=== PATIENT | male | born 1960 | race Caucasian/White ===

== ENCOUNTER 2019-03-25 11:11 | Inpatient (IN) | payer MEDICARE ==
[~2019-03-25] VITALS: Ht 175.3 cm; Wt 86.6 kg
[~2019-03-25 11:11] MED LIST: ASPIRIN BUFFER325 MG PO; DIGOXIN125 MCG PO; INDOCIN25 MG/5 ML PO; METOPROLOL TART25 MG PO; NORCO 10-325 T1 EACH PO
--- OUTSIDE RECORDS SUMMARY | 2019-03-25 11:15 | XMS REPORT ---
Author [facility] Address Unknown Phone Unavailable Care Team Providers Care Analysis Mgr Name Role Phone Unavailable Unavailable Problems This patient has no known problems. Allergies, Adverse Reactions, Alerts This patient has no known allergies or adverse reactions. Medications This patient has no known medications. Encounters Start Date/Time End Date/Time Encounter Type Admission Type Attending [facility] Care Department Encounter ID 2019-03-15 08:25:06 2019-03-15 08:25:06 Outpatient [facility] [id number] 2019-03-15 07:18:30 2019-03-15 07:18:30 Outpatient [facility] [id number] 2019-03-15 00:00:00 2019-03-15 00:00:00 Outpatient [facility] [id number] 2018-08-16 10:33:34 2018-08-16 10:33:34 Outpatient [facility] [id number] 2018-08-10 00:00:00 2018-08-10 00:00:00 Outpatient [facility] [id number] 2018-08-09 07:30:17 2018-08-09 07:30:17 Outpatient [facility] [id number] 2018-07-26 12:17:42 2018-07-26 12:17:42 Outpatient [facility] [id number] 2018-07-20 10:40:40 2018-07-20 10:40:40 Outpatient [facility] [id number] 2018-05-31 00:00:00 2018-05-31 00:00:00 Outpatient [facility] [id number] 2018-05-05 12:03:38 2018-05-05 12:03:38 Outpatient [facility] [id number] 2018-05-04 13:37:14 2018-05-04 13:37:14 Outpatient [facility] [id number] 2018-04-19 09:02:52 2018-04-19 09:02:52 Outpatient [facility] [id number] 2018-04-19 08:56:32 2018-04-19 08:56:32 Outpatient [facility] [id number] 2018-04-19 08:00:29 2018-04-19 08:00:29 Outpatient [facility] [id number]
[2019-03-25 12:00] VITALS: BP 121/82
[2019-03-25 12:24] VITALS: BP 128/106
[2019-03-25] MEDS ORDERED: ENOXAPARIN INJ 80 MG/0.8 ML SYR SC SCH (12:30)
[2019-03-25] MEDS ORDERED: METOPROLOL TARTRATE INJ 1 MG/ML VIAL IV PRN (12:45)
[2019-03-25] MEDS: DRONEDARONE 400 MG TAB PO SCH ×2 (12:46→17:00)
[2019-03-25] MEDS: APIXABAN 5 MG TABLET PO SCH ×2 (12:46→17:00)
[2019-03-25] MEDS: METOPROLOL TARTRATE 25 MG TAB PO SCH ×3 (12:46→23:41)
[2019-03-25] MEDS ORDERED: ASPIR-LOW81 MG PO (13:01)
[2019-03-25] MEDS ORDERED: BACLOFEN10 MG PO (13:03)
[2019-03-25] MEDS ORDERED: LORATADINE10 MG PO (13:05)
[2019-03-25] MEDS ORDERED: LEVOXYL PO (13:06)
[2019-03-25] MEDS ORDERED: PANTOPRAZOLE SO40 MG PO (13:07)
[2019-03-25] MEDS ORDERED: LYRICA50 MG PO (13:08)
[2019-03-25] MEDS ORDERED: COREG3.125 MG PO (13:09)
[2019-03-25] MEDS ORDERED: BENICAR20 MG PO (13:11)
[2019-03-25] MEDS ORDERED: PROAIR HFA IH (13:13)
[2019-03-25 14:07] LABS: BASOPHILS % 0.2 % (0.0-1.0); EOSINOPHILS % 0.2 % (0.0-6.0); HEMATOCRIT 45.3 % (38.2-49.6); HEMOGLOBIN 14.8 g/dL (14.0-18.0); LYMPHOCYTES # (AUTO) 0.9 (1.0-3.2); LYMPHOCYTES % 7.5 % (18.0-39.1); MEAN CORPUSCULAR HEMOGLOBIN 30.4 pg (28-32); MEAN CORPUSCULAR HGB CONC 32.7 g/dL (31-35); MONOCYTES # (AUTO) 0.3 (0.2-0.8); MONOCYTES % 2.6 % (4.4-11.3); NEUTROPHILS # (AUTO) 10.8 (2.1-6.9); PLATELET COUNT 225 x10e3/uL (140-360); RED BLOOD COUNT 4.87 x10e6/uL (4.3-5.7); RED CELL DISTRIBUTION WIDTH 12.8 % (11.7-14.4)
[2019-03-25 14:20] LABS: INR 0.86; PROTHROMBIN TIME 12.2 seconds (11.9-14.5)
[2019-03-25 14:21] LABS: PARTIAL THROMBOPLASTIN TIME 28.5 seconds (23.8-35.5)
[2019-03-25 14:29] LABS: ALANINE AMINOTRANSFERASE 11 IU/L (0-55); ALBUMIN 3.3 g/dL (3.5-5.0); ALKALINE PHOSPHATASE 70 IU/L (40-150); ANION GAP 14.9 mmol/L (8-16); BLOOD UREA NITROGEN 20 mg/dL (7-26); BUN/CREATININE RATIO 17 (6-25); CALCIUM 9.2 mg/dL (8.4-10.2); CARBON DIOXIDE 21 mmol/L (22-29); CHLORIDE 106 mmol/L (98-107); CREATININE, SERUM 1.17 mg/dL (0.72-1.25); EST GLOMERULAR FILTRATION RATE > 60 ML/MIN (60-); GLUCOSE 147 mg/dL (74-118); MAGNESIUM 1.9 MG/DL (1.3-2.1); POTASSIUM 3.9 mmol/L (3.5-5.1); SODIUM 138 mmol/L (136-145)
[2019-03-25 14:48] LABS: THYROID STIMULATING HORMONE 0.837 uIU/mL (0.350-4.940)
[2019-03-25 15:00] VITALS: BP 132/80
[2019-03-25 15:47] LABS: ABG HCO3 19 mmol/L (23-28); ABG PCO2 32 mmHg (41-51); ABG PH 7.39 (7.31-7.41); ABG PO2 99 mmHg (80-105)
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
--- NOTE | 2019-03-25 18:13 | Diagnostic Imaging Report ---
EXAMINATION: CHEST SINGLE (PORTABLE) INDICATION: ^[id number] ^[id number] ^[id number] COMPARISON: None FINDINGS: TUBES and LINES: None. LUNGS: Lungs are well inflated. Lungs are clear. There is no evidence of pneumonia or pulmonary edema. PLEURA: No pleural effusion or pneumothorax. HEART AND MEDIASTINUM: The cardiomediastinal silhouette is unremarkable. BONES AND SOFT TISSUES: No acute osseous lesion. Soft tissues are unremarkable. UPPER ABDOMEN: No free air under the diaphragm. IMPRESSION: No acute thoracic abnormality. Signed by: Dr. Zuri Gomez M.D. on 03/25/2019 6:11 PM
[2019-03-25] MEDS ORDERED: SODIUM CHLORIDE 0.9% 50ML 50 ML ONE (18:18)
[2019-03-25] MEDS ORDERED: IOPAMIDOL 370 MG/ML 200 ML INFUS..BTL INJ ONE (18:19)
--- NOTE | 2019-03-25 18:32 | Diagnostic Imaging Report ---
EXAM: CT Chest WITH contrast 03/25/2019 11:59 AM INDICATION: Pain. Pulmonary Embolism.. Atrial fibrillation. COMPARISON: 11/06/2013. TECHNIQUE: Chest was scanned utilizing a multidetector helical scanner from the lung apex through the level of the adrenal glands without administration of IV contrast. Coronal and sagittal reformations were obtained. Pulmonary embolism protocol was performed. IV CONTRAST: 100 cc Isovue-300 RADIATION DOSE: Total DLP: 521.29 mGy*cm Estimated effective dose: (DLP x 0.014 x size factor) mSv COMPLICATIONS: None FINDINGS: LINES/ TUBES: None. LUNGS AND AIRWAYS: No filling defects within the pulmonary arterial system to suggest pulmonary embolism as per clinical query. Patchy consolidation in the left lung base may represent pneumonia in the proper clinical setting. Airways are normal. PLEURA: The pleural spaces are clear. HEART AND MEDIASTINUM: The thyroid gland is normal. No mediastinal, hilar or axillary lymphadenopathy. The heart is normal in size.. There is no pericardial effusion. UPPER ABDOMEN: Limited non-contrast views of the upper abdomen show no abnormality within the visualized liver, spleen, pancreas, or kidneys. The adrenal glands are normal. BONES: Lower thoracic the ICA. SOFT TISSUES: Unremarkable. IMPRESSION: 1. No evidence of pulmonary embolism. 2. Patchy consolidation in the left lung base concerning for pneumonia in the proper clinical setting Signed by: Dr. Zuri Gomez M.D. on 03/25/2019 6:29 PM
[2019-03-25 19:00] VITALS: BP 135/84
[2019-03-25 23:00] VITALS: BP 123/103
[2019-03-26] VITALS (9 sets, daily range): BP systolic 112–144; BP diastolic 80–106
[2019-03-26] MEDS: METOPROLOL TARTRATE 25 MG TAB PO SCH ×3 (06:06→23:45)
[2019-03-26] MEDS ORDERED: LORAZEPAM INJ 2 MG/ML VIAL IV PRN (08:00)
[2019-03-26] MEDS: APIXABAN 5 MG TABLET PO SCH ×2 (08:25→16:33)
[2019-03-26] MEDS: DRONEDARONE 400 MG TAB PO SCH ×2 (08:25→16:33)
[2019-03-26] MEDS: LEVOFLOXACIN 500MG/D5W 100ML 100 ML IV SCH (11:22)
[2019-03-26] MEDS ORDERED: METOPROLOL TARTRATE 25 MG TAB PO SCH (12:30)
[2019-03-26] MEDS: FAMOTIDINE 20 MG TAB PO SCH (16:33)
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
[2019-03-27] VITALS (7 sets, daily range): BP systolic 101–154; BP diastolic 66–104
[2019-03-27 05:06] LABS: BASOPHILS % 0.4 % (0.0-1.0); EOSINOPHILS # (AUTO) 0.2 (0.0-0.4); EOSINOPHILS % 1.8 % (0.0-6.0); HEMATOCRIT 44.8 % (38.2-49.6); HEMOGLOBIN 14.3 g/dL (14.0-18.0); LYMPHOCYTES # (AUTO) 2.6 (1.0-3.2); LYMPHOCYTES % 24.7 % (18.0-39.1); MEAN CORPUSCULAR HEMOGLOBIN 30.6 pg (28-32); MEAN CORPUSCULAR HGB CONC 31.9 g/dL (31-35); MEAN CORPUSCULAR VOLUME 95.9 fL (81-99); MONOCYTES # (AUTO) 1.1 (0.2-0.8); MONOCYTES % 10.5 % (4.4-11.3); NEUTROPHILS # (AUTO) 6.6 (2.1-6.9); PLATELET COUNT 216 x10e3/uL (140-360); RED BLOOD COUNT 4.67 x10e6/uL (4.3-5.7); RED CELL DISTRIBUTION WIDTH 13.6 % (11.7-14.4)
[2019-03-27 05:21] LABS: CREATININE, SERUM 1.38 mg/dL (0.72-1.25)
[2019-03-27] MEDS: FAMOTIDINE 20 MG TAB PO SCH ×2 (07:15→16:51)
[2019-03-27] MEDS: DRONEDARONE 400 MG TAB PO SCH (08:05)
[2019-03-27] MEDS: METOPROLOL TARTRATE 25 MG TAB PO SCH (08:05)
[2019-03-27] MEDS: APIXABAN 5 MG TABLET PO SCH ×2 (08:06→16:51)
[2019-03-27] MEDS ORDERED: TRAMADOL HCL 50 MG TAB PO PRN (10:15)
[2019-03-27] MEDS: BACLOFEN 10 MG TAB PO SCH ×2 (10:37→20:53)
[2019-03-27] MEDS: LEVOFLOXACIN 500MG/D5W 100ML 100 ML IV SCH (10:38)
[2019-03-27] MEDS ORDERED: METOPROLOL TARTRATE 50 MG TAB PO SCH (17:00)
--- NOTE | 2019-03-27 18:36 | NUR ---
Pt with sudden onset nausea and headache. Vitals HR 114, BP 110/87. Spoke with Dr Ness and orders received, also he advised to notify cardiology.
[2019-03-27] MEDS ORDERED: ONDANSETRON HCL INJ 2MG/ML 2ML 2 MG/ML VIAL IV PRN (18:45)
--- NOTE | 2019-03-27 18:53 | NUR ---
Spoke with Dr Mosqueda regarding pt reporting sudden nausea and headache. No new orders.
[2019-03-27] MEDS: PREGABALIN 50 MG CAP PO SCH (20:53)
[2019-03-28] VITALS (11 sets, daily range): BP systolic 92–125; BP diastolic 63–100
[2019-03-28] MEDS: LEVOTHYROXINE SODIUM 25 MCG TABLET PO SCH (05:24)
[2019-03-28 05:36] LABS: ALBUMIN 3.1 g/dL (3.5-5.0); ALBUMIN/GLOBULIN RATIO 0.9 (0.8-2.0); ANION GAP 14.8 mmol/L (8-16); CALCIUM 9.2 mg/dL (8.4-10.2); CREATININE, SERUM 1.71 mg/dL (0.72-1.25); POTASSIUM 3.8 mmol/L (3.5-5.1)
[2019-03-28] MEDS: PANTOPRAZOLE SOD 40 MG TABEC PO SCH (07:27)
[2019-03-28] MEDS: FAMOTIDINE 20 MG TAB PO SCH ×2 (07:28→16:36)
[2019-03-28] MEDS: LEVALBUTEROL HCL SOLN NEBU 0.63 MG/3 ML NEB INH PRN (07:38)
[2019-03-28] MEDS ORDERED: METOPROLOL TARTRATE 50 MG TAB PO SCH (09:00)
[2019-03-28] MEDS ORDERED: ASPIRIN 81 MG CHEW TAB PO SCH (09:00)
[2019-03-28] MEDS: OLMESARTAN 20 MG TAB PO SCH (09:19)
[2019-03-28] MEDS: LORATADINE 10 MG TAB PO SCH (09:21)
[2019-03-28] MEDS: APIXABAN 5 MG TABLET PO SCH ×2 (09:21→18:14)
[2019-03-28] MEDS: METOPROLOL TARTRATE 25 MG TAB PO SCH ×2 (09:21→18:14)
[2019-03-28] MEDS: BACLOFEN 10 MG TAB PO SCH ×2 (10:15→21:15)
[2019-03-28 10:49] LABS: BASOPHILS # (AUTO) 0.1 (0.0-0.1); BASOPHILS % 0.4 % (0.0-1.0); EOSINOPHILS # (AUTO) 0.2 (0.0-0.4); EOSINOPHILS % 2.1 % (0.0-6.0); HEMATOCRIT 48.6 % (38.2-49.6); HEMOGLOBIN 15.6 g/dL (14.0-18.0); LYMPHOCYTES # (AUTO) 2.1 (1.0-3.2); LYMPHOCYTES % 17.9 % (18.0-39.1); MEAN CORPUSCULAR HGB CONC 32.1 g/dL (31-35); MEAN CORPUSCULAR VOLUME 96.6 fL (81-99); MONOCYTES # (AUTO) 1.1 (0.2-0.8); MONOCYTES % 9.8 % (4.4-11.3); NEUTROPHILS % 69.2 % (38.7-80.0); PLATELET COUNT 253 x10e3/uL (140-360); RED BLOOD COUNT 5.03 x10e6/uL (4.3-5.7); RED CELL DISTRIBUTION WIDTH 13.8 % (11.7-14.4)
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
[2019-03-28] MEDS: CEFTRIAXONE SOD 1 GM/NS 50 ML 50 ML IV SCH (11:44)
[2019-03-28] MEDS: AZITHROMYCIN 250 MG TAB PO SCH (11:45)
[2019-03-28] MEDS: DRONEDARONE 400 MG TAB PO SCH (18:14)
--- NOTE | 2019-03-28 18:24 | NUR ---
Bp 98/68, HR 71. Spoke with Dr Mosqueda. Ordered to give the multaq and metoprolol at this time.
--- NOTE | 2019-03-28 19:00 | NUR ---
Bedside report received from Lisa Menjivar RN. Pt received sitting up in bed, AAOx4, room air, no distress noted, pt reports no pain or discomfort. Care plan reviewed, no family present. Call light in reach of the pt, bed in lowest and locked position.
[2019-03-28] MEDS: PREGABALIN 50 MG CAP PO SCH (21:15)
[2019-03-29] VITALS: BP 111/76
[2019-03-29 04:59] LABS: BASOPHILS # (AUTO) 0.1 (0.0-0.1); BASOPHILS % 0.5 % (0.0-1.0); EOSINOPHILS # (AUTO) 0.3 (0.0-0.4); HEMATOCRIT 46.2 % (38.2-49.6); HEMOGLOBIN 14.7 g/dL (14.0-18.0); LYMPHOCYTES # (AUTO) 2.3 (1.0-3.2); LYMPHOCYTES % 21.4 % (18.0-39.1); MEAN CORPUSCULAR HEMOGLOBIN 30.4 pg (28-32); MEAN CORPUSCULAR HGB CONC 31.8 g/dL (31-35); MEAN CORPUSCULAR VOLUME 95.5 fL (81-99); MONOCYTES # (AUTO) 1.1 (0.2-0.8); MONOCYTES % 10.2 % (4.4-11.3); NEUTROPHILS # (AUTO) 6.9 (2.1-6.9); NEUTROPHILS % 64.2 % (38.7-80.0); PLATELET COUNT 229 x10e3/uL (140-360); RED BLOOD COUNT 4.84 x10e6/uL (4.3-5.7); RED CELL DISTRIBUTION WIDTH 13.7 % (11.7-14.4)
[2019-03-29 05:23] LABS: ALBUMIN 3.1 g/dL (3.5-5.0); ANION GAP 13.3 mmol/L (8-16); CREATININE, SERUM 1.68 mg/dL (0.72-1.25); POTASSIUM 4.3 mmol/L (3.5-5.1)
[2019-03-29] MEDS: LEVOTHYROXINE SODIUM 25 MCG TABLET PO SCH (05:49)
--- NOTE | 2019-03-29 06:00 | NUR ---
RECEIVED PATIENT FROM ICU AT THIS TIME. LUNG SOUNDS CLEAR. BOWEL SOUNDS ACTIVE. IV TO R FA 20G ASYMPTOMATIC, INTACT, AND PATENT. PEDAL PULSES PALPABLE. NO PAIN REPORTED. VITAL SIGNS STABLE. BED LOCKED IN LOWEST POSITION, SIDE RAILS UPX2, CALL LIGHT IN REACH.
[2019-03-29 06:29] VITALS: BP 122/78
--- NOTE | 2019-03-29 07:00 | NUR ---
RECEIVED PATIENT AWAKE RESTING IN BED NO S/S OF DISTRESS. BED LOW, WHEELS LOCKED, SIDE RAILS X2. CALL LIGHT IN REACH WILL CONTINUE TO MONITOR PATIENT.
[2019-03-29 08:30] VITALS: BP 123/75
[2019-03-29] MEDS: PANTOPRAZOLE SOD 40 MG TABEC PO SCH (08:44)
[2019-03-29] MEDS: METOPROLOL TARTRATE 25 MG TAB PO SCH (08:44)
[2019-03-29] MEDS: LORATADINE 10 MG TAB PO SCH (08:44)
[2019-03-29] MEDS: DRONEDARONE 400 MG TAB PO SCH (08:44)
[2019-03-29] MEDS: OLMESARTAN 20 MG TAB PO SCH (08:44)
[2019-03-29] MEDS: AZITHROMYCIN 250 MG TAB PO SCH (08:44)
[2019-03-29] MEDS: APIXABAN 5 MG TABLET PO SCH (08:44)
[2019-03-29] MEDS: FAMOTIDINE 20 MG TAB PO SCH (08:44)
[2019-03-29 09:47] VITALS: BP 123/75
[2019-03-29] MEDS: BACLOFEN 10 MG TAB PO SCH (10:44)
[2019-03-29] MEDS ORDERED: ONDANSETRON HCL 4 MG ORAL DISINTEGRATING TAB PO PRN (11:15)
[2019-03-29] MEDS ORDERED: SODIUM CHLORIDE 0.9% 250ML 250 ML ONE (11:55)
[2019-03-29] MEDS: CEFTRIAXONE SOD 1 GM/NS 50 ML 50 ML IV SCH (12:00)
[2019-03-29 12:03] VITALS: BP 107/64
[2019-03-29] MEDS ORDERED: TESSALON PERLE100 MG PO (13:47)
[2019-03-29] MEDS ORDERED: ELIQUIS5 M1 PO (13:47)
[2019-03-29] MEDS ORDERED: METOPROLOL TART25 MG PO (13:48)
[2019-03-29] MEDS ORDERED: ceftin PO (13:49)
[2019-03-29] MEDS ORDERED: MULTAQ400 MG PO (13:49)
[2019-03-29] MEDS ORDERED: ZITHROMAX250 MG PO (13:50)
--- NOTE | 2019-03-29 14:20 | NUR ---
REMOVED PATIENTS IV. CATHETER TIP INTACT AND PRESSURE DRESSING APPLIED.
--- NOTE | 2019-03-29 14:35 | NUR ---
PATIENT DISCHARGED FROM FACILITY. PATIENT GATHERED ALL PERSONAL BELONGINGS, DISCHARGE INSTRUCTIONS, AND FOLLOW UP INFORMATION. PATIENT LEFT UNIT IN WHEELCHAIR AND WENT HOME VIA PRIVATE AUTO. NO S/S OF DISTRESS WHEN LEAVING FACILITY.
--- NOTE | 2019-03-30 07:56 | Discharge Summary ---
HISTORY: He is a 58-year-old male patient presented to the emergency room with palpitation and shortness of breath and a cough. ADMITTING IMPRESSION DIAGNOSES: Patient was 58-year-old male patient was admitted with diagnoses of atrial fibrillation with rapid ventricular rate and left lower lobe pneumonia, severe bronchitis and hypertensive heart disease, the parotid cancer and anxiety, stress. HOSPITAL COURSE SUMMARY: The patient was admitted in the intensive care unit. Patient was given IV beta benito and Cardiology and consult done Dr. Mosqueda. Patient's rate was controlled with beta benito, metoprolol, and patient was also given Eliquis and dose of Lovenox was given in the emergency room and the patient was started also on IV antibiotic, Levaquin. The patient had improved, but the patient continued to have persistent cough. A Pulmonary consultation was done. Dr. Murphy had seen the patient and patient's antibiotic was changed from Levaquin to Rocephin and azithromycin. The patient was transferred out of ICU and moved to the telemetry unit. The patient was also given the nebulizer treatment. IMAGING: Patient had a chest x-ray done and a CT scan of the chest done, which showed left lower lobe infiltrate, possible pneumonia. Echocardiogram was also done, which showed moderate LVH and 50% to 55% ejection fraction and diastolic dysfunction and left atrial moderately dilatation. The patient has a mild-to- moderate MR and on CT scan of the chest, there was no evidence of pulmonary embolism. Now upon stabilization, the patient will be discharged home on a Xopenex, Tessalon Perles, Eliquis, metoprolol, Multaq, , and Zithromax. FOLLOWUP: The patient will be followed up as outpatient with me as well as Cardiology. MD TIMI Johnston/ABRAHAN /[id number]
== END 2019-03-29 14:37 | disposition home or self-care (01) | DRG 308 ==
LOC: ICU 11:11 → MED/SURG 03-29 06:00
PROVIDERS: ADMIT Internal Medicine; ATTEND Internal Medicine
DX: I48.0 Paroxysmal atrial fibrillation (principal); J18.9 Pneumonia, unspecified organism; I50.33 Acute on chronic diastolic (congestive) heart failure; I13.0 Hypertensive heart and chronic kidney disease with heart failure and stage 1 through stage 4 chronic kidney disease, or unspecified chronic kidney disease; E03.9 Hypothyroidism, unspecified; J44.9 Chronic obstructive pulmonary disease, unspecified; Z85.89 Personal history of malignant neoplasm of other organs and systems; Z88.5 Allergy status to narcotic agent; Z88.0 Allergy status to penicillin; Z86.718 Personal history of other venous thrombosis and embolism; N18.3 Chronic kidney disease, stage 3 (moderate); Z87.891 Personal history of nicotine dependence; E78.5 Hyperlipidemia, unspecified; J40 Bronchitis, not specified as acute or chronic
CPT/HCPCS: 36415; 36600; 71045; 71260; 80048; 80053; 80061; 82805; 83036; 83735; 84443; 85025; 85610; 85730; 93005; 93306; 94640; J0696; J1956; J2405; J7050; Q9967

== ENCOUNTER → 2023-12-15 | Outpatient (REF) | payer OTHER ==
[~2023-12-15] MED LIST changes: +ASPIR-LOW81 MG PO; +BACLOFEN10 MG PO; +BENICAR20 MG PO; +COREG3.125 MG PO; +ELIQUIS5 M1 PO; +IOPAMIDOL 370 MG/ML 100 ML INFUS..BTL INJ ONE; +LEVOXYL PO; +LORATADINE10 MG PO; +LYRICA50 MG PO; +MULTAQ400 MG PO; +PANTOPRAZOLE SO40 MG PO; +PROAIR HFA IH; +TESSALON PERLE100 MG PO; +ZITHROMAX250 MG PO; +ceftin PO
[2023-12-15 08:20] LABS: CREATININE, SERUM 1.32 mg/dL (0.72-1.25)
== END ==
LOC: CT 06:52
PROVIDERS: ATTEND Internal Medicine
DX: G45.1 Carotid artery syndrome (hemispheric) (principal)
CPT/HCPCS: 36415; 70498; 82565; 84520; Q9967